=== PATIENT | male | born 1950 | race Caucasian/White ===

== ENCOUNTER → 2019-02-02 | Outpatient (CLI) | payer OTHER ==
[2015-07-07 07:03] VITALS: BP 129/64
[~2019-02-02] MED LIST: ASPI325T8 PO; HYDR-2145 PO; LISI-334 PO; METO-239 PO; SIMV20TA3 PO; ZOLP5TAB5 PO
--- NOTE | 2019-02-02 16:10 | KCIC ---
Examination: 3 views of the bilateral knees HISTORY: History of chronic bilateral knee pain, osteoarthritis COMPARISON: None available FINDINGS: Mild joint space loss identified in the medial, lateral, patellofemoral compartments of the bilateral knees. There is no acute fracture or dislocation identified. Minimal bilateral knee joint effusion. IMPRESSION: Minimal tricompartmental degenerative changes bilateral knees. Electronically signed by: Gilson Pollock MD (02/02/2019 4:07 PM) [facility]-KCIC2
== END | disposition home or self-care (01) ==
LOC: KCIC 14:13
PROVIDERS: ATTEND Family Medicine
DX: M17.0 Bilateral primary osteoarthritis of knee (principal)
CPT/HCPCS: 73562

== ENCOUNTER 2020-02-20 12:39 | Emergency (ER) | payer OTHER, MEDICARE ==
[~2020-02-20] VITALS: Ht 167.6 cm; Wt 80.9 kg
[~2020-02-20 12:39] MED LIST changes: +SIMV20TA18 PO; -SIMV20TA3 PO
[2020-02-20] MEDS ORDERED: DIPH,PERTUSS(ACELL),TET VAC/PF 0.5 ML SYRINGE. VAX IM ONE (13:00)
[2020-02-20] MEDS ORDERED: IV NORMAL SALINE 1000ML BAG 1,000 ML IV ONE (13:00)
[2020-02-20 13:21] LABS: BASO # 0.2 x10^3/uL (0.0-0.2); BASO % 1 % (0-3); EOS # 0.4 x10^3/uL (0.0-0.7); EOS % 3 % (0-3); HEMATOCRIT 44.5 % (39.0-53.0); HEMOGLOBIN 14.9 g/dL (13.0-17.5); LYMPH # 4.4 x10^3/uL (1.0-4.8); LYMPH % 32 % (24-48); MEAN CORPUSCULAR HEMOGLOBIN 30 pg (25-35); MEAN CORPUSCULAR HGB CONC 33 g/dL (31-37); MEAN CORPUSCULAR VOLUME 88 fL (79-100); MONO # 1.1 x10^3/uL (0.0-1.1); MONO % 9 % (0-9); NEUT # 7.4 x10^3/uL (1.8-7.7); NEUT % 55 % (31-73); PLATELET COUNT 349 x10^3/uL (140-400); RED BLOOD COUNT 5.03 x10^6/uL (4.30-5.70); RED CELL DISTRIBUTION WIDTH 13.1 % (11.5-14.5); WHITE BLOOD COUNT 13.5 x10^3/uL (4.0-11.0)
[2020-02-20 13:31] LABS: CALCIUM 9.5 mg/dL (8.5-10.1); CREATININE 1.6 mg/dL (0.7-1.3); GFR 43.3; POTASSIUM 3.8 mmol/L (3.5-5.1)
[2020-02-20 13:32] LABS: PROTHROMBIN TIME PATIENT 13.2 SEC (11.7-14.0)
[2020-02-20 13:44] LABS: ALBUMIN 3.2 g/dL (3.4-5.0); ALBUMIN/GLOBULIN RATIO 0.9 (1.0-1.7); TOTAL BILIRUBIN 0.4 mg/dL (0.2-1.0); TOTAL PROTEIN 6.7 g/dL (6.4-8.2)
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
[2020-02-20 14:09] VITALS: BP 140/71
--- NOTE | 2020-02-22 15:15 | EKG ---
[facility] [address] [place] [address] Test Date: 2020-02-20 Test Time: 12:44:00 Pat Name: JUN FOWLER Department: Room: Gender: M Chronometer Tester: : 1950 Requested By: SEBAS HI Order Number: [id number] Reading MD: Measurements Intervals [place] Rate: 59 P: 58 NE: 210 QRS: 13 QRSD: 98 T: 46 QT: 440 QTc: 436 Interpretive Statements SINUS RHYTHM INCOMPLETE RIGHT BUNDLE BRANCH BLOCK NO SPECIFIC ECG ABNORMALITIES RI6.01 No previous ECG available for comparison
== END 2020-02-20 14:15 | disposition home or self-care (01) ==
LOC: ER 12:39
DX: S80.212A Abrasion, left knee, initial encounter (principal); S80.211A Abrasion, right knee, initial encounter; S50.811A Abrasion of right forearm, initial encounter; R55 Syncope and collapse; E11.9 Type 2 diabetes mellitus without complications; E78.00 Pure hypercholesterolemia, unspecified; I10 Essential (primary) hypertension; Z87.891 Personal history of nicotine dependence; V19.88XA Pedal cyclist (driver) (passenger) injured in other specified transport accidents, initial encounter; Y92.488 Other paved roadways as the place of occurrence of the external cause; Y93.89 Activity, other specified; Y99.8 Other external cause status
CPT/HCPCS: 36415; 80053; 83735; 83880; 84484; 85025; 85610; 85730; 90471; 90715; 93005; 96360; 99284; J7030

== ENCOUNTER → 2020-08-08 | Outpatient (CLI) | payer OTHER ==
[~2020-08-08] MED LIST changes: +AMLO-187 PO; +ASPI-630 PO; +ATOR40TA59 PO; +BUPR100T11 PO; +CLOP75TA PO; -LISI-334 PO; +LISI20TA18 PO; +LORA5TAB7 PO; +METF500T16 PO; +METO25TA4 PO; +OMEP20TA63 PO; +REGADENOSON 0.4 MG/5 ML DISP.SYRIN. IV ONE
--- NOTE | 2020-08-08 11:14 | RAD ---
EXAM: Bilateral lower extremity arterial Doppler sonogram. HISTORY: Claudication. Leg pain. Peripheral artery disease. TECHNIQUE: Fierro scale and color Doppler sonographic imaging of the lower extremity arteries with spec tral waveform analysis was performed. COMPARISON: None. FINDINGS: There is severe atherosclerotic plaque throughout the right greater than left common femora l and superficial femoral arteries. There are abnormal monophasic waveforms throughout the right supe rficial femoral, popliteal and calf arteries. There are also decreased peak systolic velocities withi n these vessels, predominantly at the right mid superficial femoral artery. There are biphasic and triphasic waveforms throughout the left lower extremity arteries. There is an elevated peak systolic velocity within the distal left superficial femoral artery measuring 290 cm/s. IMPRESSION: 1. Severe atherosclerotic plaque involving the right greater than left common femoral and superficial femoral arteries. 2. Abnormal monophasic waveforms involving the right superficial femoral, popliteal and calf arteries , consistent with hemodynamically significant proximal stenosis. This predominantly involves the mid superficial femoral artery. 3. Elevated peak systolic velocity within the distal left superficial femoral artery, consistent with hemodynamically significant stenosis. Electronically signed by: Barbara Hair MD (08/08/2020 11:12 AM) [id number]
--- NOTE | 2020-08-08 14:32 | RAD ---
MR#: [id number] Date of Study: 08/08/2020 Ordering Physician: JADE FINCH Referring Physician: KADEN ZAPATA Tech: RT Flora Sosa) (N) APPROVED REPORT Test Type: Pharmacological Stress Nurse/Tech: Lula Flores RN Test Indications: dyspnea on exertion Cardiac History: HTN, x-smoker, DM Medications: See Electronic Medical Record Medical History: See Electronic Medical Record Resting ECG: SR Resting Heart Rate: 59 bpm Resting Blood Pressure: 146/79mmHg Pretest Chest Pain: None Nurse/Tech Notes lungs CTA Consent: The procedure was explained to the patient in lay terms. Informed consent was witnessed. Rajat eout was entered into [employer]. History and Stress Test performed by RT Ian (Afshin) (N) Pharm. Details Pharmacologic stress testing was performed using 0.4mg per 5ml of regadenoson given intravenously ove r 7-10 seconds. Stress Symptoms No chest pain or symptoms. POST EXERCISE Reason for Termination: Infusion complete Max HR: 79 bpm Max Blood Pressure: 146/55mmHg Blood Pressure response to exercise: Normal blood pressure response during stress. Heart Rate response to exercise: normal response Chest Pain: No. Arrhythmia: No. ST Change: No. INTERPRETATION Stress EKG Conclusion: Baseline EKG showed sinus rhythm. No ischemic changes at peak stress. No arr hythmias. Imaging Protocol IMAGE PROTOCOL: Rest Tc-99m/stress Tc-99m 1 day Rest: Stress: Viability: Radiopharm.Tc99m LpnxaisnwOb25d Sestamibi Dose10.5mCi 30.1mCi Duration 15min. 10min. Img Date 08/08/2020 08/08/2020 Inj-Img [id number]. 60min. Rest Admin Site:IV - Left AntecubitalAdministrator:RT Ian (Afshin)(N) Stress Admin Site: IV - Left AntecubitalAdministrator: RT Ian (Afshin)(N) STRESS DATA End Diast. Vol.79.0mlAv. Heart Rate61.0bpm End Syst. Vol.17.0mlCO Index BSA0.0L/min Myocardial Htaj412.0gEject. Jarvpdhr72.0% Stress Rates Pk. Fill Rate2.90EDV/secLVtime Pk. Fill 218.54msec Pk. Empty Rate4.51ESV/secLVtime Pk. Ccizg782.15msec 1/3 Pk. Fill1.20EDV/sec Stress Scores Regional WT0.00Summed WT8.00 Regional WM0.00Summed WM0.00 Study quality was good. Left Ventricular size was Normal at Rest and Stress. Lung uptake was . Left Ventricular ejection fraction is 75%. The rest and stress images show normal perfusion, normal contraction and thickening. LV Perf. Quant 17 Seg. SSS0.00 17 Seg. SRS0.00 17 Seg. SDS0.00 Stress Defect Extent (% LAD)0.00Rest Defect Extent (% LAD)0.00Rev. Defect Extent (% LAD)0.00 Stress Defect Extent (% LCX) 0.00Rest Defect Extent (% LCX)0.00Rev. Defect Extent (% LCX)0.00 Stress Defect Extent (% RCA)0.00Rest Defect Extent (% RCA)0.00Rev. Defect Extent (% RCA)0.00 Stress Defect Extent (% BOO)0.00Rest Defect Extent (% BOO)0.00Rev. Defect Extent (% BOO)0.00 Conclusion 1. Regadenoson cardioisotope stress test did not show any evidence of ischemia or infarct. 2. Normal left ventricular systolic function with ejection fraction calculated at 75%. 3. Low risk for cardiac events. Signed by : Jade Finch, Electronically Approved : 08/08/2020 14:31:55
--- NOTE | 2020-08-08 15:04 | CARD ---
MR#: [id number] Date of Study: 08/08/2020 Ordering Physician: JADE FINCH, Referring Physician: JADE FINCH, Tech: Carlie Blankenship [facility] APPROVED REPORT EXAM: Two-dimensional and M-mode echocardiogram with Doppler and color Doppler. Other Information Quality : FairHR: 61bpm Rhythm : NSR INDICATION Dyspnea RISK FACTORS Hypertension Hyperlipidemia 2D DIMENSIONS RVDd3.6 (2.9-3.5cm)Left Atrium(2D)3.7 (1.6-4.0cm) IVSd0.9 (0.7-1.1cm)Aortic Root(2D)3.6 (2.0-3.7cm) LVDd4.4 (3.9-5.9cm)LVOT Diameter2.1 (1.8-2.4cm) PWd1.1 (0.7-1.1cm)LVDs2.6 (2.5-4.0cm) FS (%) 40.6 %SV62.1 ml LVEF(%)71.6 (>50%) Aortic Valve AoV Peak Jeronimo.163.3cm/sAoV VTI35.1cm AO Peak GR.10.7mmHgLVOT Peak Jeronimo.117.7cm/s AO Mean GR.4mmHgAVA (VMAX)2.51cm2 Mitral Valve MV E Vdjxsskm64.2cm/sMV DECEL EITE283ky MV A Qatzmamc50.0cm/sE/A Ratio1.0 Tricuspid Valve TR P. Gzmakupx653qp/sTR Peak Gr.20mmHg Pulmonary Vein S1 Vzkhvaiy63.4cm/s LEFT VENTRICLE The left ventricle is normal size. There is normal left ventricular wall thickness. The left ventricu lar systolic function is normal. Estimated ejection fraction 55-60%. There is normal LV segmental wal l motion. The left ventricular diastolic function and filling is normal for age. RIGHT VENTRICLE The right ventricle is normal size. There is normal right ventricular wall thickness. The right ventr icular systolic function is normal. ATRIA The left atrium size is normal. The right atrium size is normal. The interatrial septum is intact wit h no evidence for an atrial septal defect or patent foramen ovale as noted on 2-D or Doppler imaging. AORTIC VALVE The aortic valve is normal in structure and function. Doppler and Color Flow revealed no significant aortic regurgitation. There is no significant aortic valvular stenosis. MITRAL VALVE The mitral valve is normal in structure and function. There is no evidence of mitral valve prolapse. There is no mitral valve stenosis. Doppler and Color Flow revealed no mitral valve regurgitation note d. TRICUSPID VALVE The tricuspid valve is normal in structure and function. Doppler and Color Flow revealed trace tricus pid regurgitation. Estimated PAP 23 mmHg. There is no tricuspid valve stenosis. PULMONIC VALVE The pulmonary valve is normal in structure and function. Doppler and Color Flow revealed no pulmonic valvular regurgitation. GREAT VESSELS The aortic root is normal in size. The ascending aorta is normal in size. The pulmonary artery is nor mal. The IVC is normal in size and collapses >50% with inspiration. PERICARDIAL EFFUSION There is no evidence of significant pericardial effusion. Critical Notification Critical Value: No <Conclusion> The left ventricular systolic function is normal. Estimated ejection fraction 55-60%. There is normal LV segmental wall motion. Trace tricuspid regurgitation. Estimated PAP 23 mmHg. There is no evidence of significant pericardial effusion. Signed by : Jade Finch, Electronically Approved : 08/08/2020 15:03:48
== END ==
LOC: ECHO 08:39
PROVIDERS: ATTEND Internal Medicine Cardiovascular Disease
DX: I70.203 Unspecified atherosclerosis of native arteries of extremities, bilateral legs (principal); I10 Essential (primary) hypertension; R06.09 Other forms of dyspnea; Z87.891 Personal history of nicotine dependence
CPT/HCPCS: 78452; 93017; 93306; 93925; A9500; J2785

== ENCOUNTER → 2020-08-23 | Outpatient (CLI) | payer OTHER, MEDICARE ==
[~2020-08-23] MED LIST changes: -REGADENOSON 0.4 MG/5 ML DISP.SYRIN. IV ONE
== END ==
LOC: LAB 09:22
PROVIDERS: ATTEND Internal Medicine Cardiovascular Disease
DX: Z01.812 Encounter for preprocedural laboratory examination (principal); Z20.822 Contact with and (suspected) exposure to COVID-19
CPT/HCPCS: U0003

== ENCOUNTER 2020-08-26 06:59 | Outpatient (CLI) | payer OTHER ==
[~2020-08-26] VITALS: Ht 170.2 cm; Wt 86.2 kg
[2020-08-26] VITALS (13 sets, daily range): BP systolic 114–147; BP diastolic 73–82
[~2020-08-26 06:59] MED LIST changes: -AMLO-187 PO; -ASPI-630 PO; -ATOR40TA59 PO; -BUPR100T11 PO; -CLOP75TA PO; -LORA5TAB7 PO; -METF500T16 PO; -OMEP20TA63 PO
[2020-08-26] MEDS ORDERED: ATOR40TA59 PO (07:30)
[2020-08-26] MEDS ORDERED: AMLO-187 PO (07:30)
[2020-08-26] MEDS ORDERED: OMEP20TA63 PO (07:30)
[2020-08-26] MEDS ORDERED: ASPI-630 PO (07:30)
[2020-08-26] MEDS ORDERED: BUPR100T11 PO (07:30)
[2020-08-26] MEDS ORDERED: METF500T16 PO (07:30)
[2020-08-26] MEDS ORDERED: LORA5TAB7 PO (07:30)
[2020-08-26] MEDS ORDERED: LIDOCAINE 1% Multi-Dose 20 ML VIAL. ONE ×2 (07:38→09:06)
[2020-08-26] MEDS ORDERED: IODIXANOL 320 MG/ML 100 ML VIAL. ONE (07:38)
[2020-08-26 07:41] LABS: HEMATOCRIT 42.7 % (39.0-53.0); HEMOGLOBIN 14.3 g/dL (13.0-17.5); RED BLOOD COUNT 4.87 x10^6/uL (4.30-5.70); RED CELL DISTRIBUTION WIDTH 13.5 % (11.5-14.5); WHITE BLOOD COUNT 12.8 x10^3/uL (4.0-11.0)
[2020-08-26] MEDS ORDERED: MIDAZOLAM HCL/PF 5 MG/5 ML VIAL. ONE (08:19)
[2020-08-26] MEDS ORDERED: fentaNYL PF VIAL 100 MCG/2 ML VIAL ONE ×2 (08:19→09:40)
[2020-08-26] MEDS ORDERED: HEPARIN for IV BOLUS 10,000 UNIT/10 ML VIAL. ONE ×2 (08:19→09:20)
[2020-08-26 08:29] LABS: PROTHROMBIN TIME PATIENT 12.7 SEC (11.7-14.0)
[2020-08-26 08:35] LABS: CALCIUM 9.6 mg/dL (8.5-10.1); CREATININE 1.1 mg/dL (0.7-1.3); GFR 66.6; POTASSIUM 3.8 mmol/L (3.5-5.1)
--- NOTE | 2020-08-26 08:39 | PDOC ---
MODERATE SEDATION ASSESSMENT RISKS/ALTERNATIVES Risks/Alternatives Risks and alternatives of this type of sedation and procedure discussed with: RISK/ALTERNATIVES: Patient H & P ON CHART H & P H & P on chart and reviewed for co-morbid conditions and appropriate labs. H&P ON CHART: Yes STATUS PREG STATUS ASSESSED: N/A MEDS/ALLERGIES REVIEWED Meds/Allergies Reviewed Medications and Allergies including time and route of recently administered narcotics and sedatives. MEDS/ALLERGIES REVIEWED: Yes ASA RATING ASA RATING: II AIRWAY ASSESSMENT Airway Assessment Airway patency, oral function limitations, presence of caps, crowns, dentures, partials, and ability to extend neck assessed. AIRWAY ASSESSMENT: Yes MALLAMPATI SCORE MALLAMPATI SCORE: II PRE-SEDATION ASSESSMENT PRE-SEDATION ASSESSMENT: Yes JADE FINCH MD Aug 26, 2020 08:39
[2020-08-26] MEDS ORDERED: NITROGLYCERIN 200 MCG/2 ML SYRINGE FOR CATH/VASC LAB. ONE (09:12)
[2020-08-26] MEDS ORDERED: VERAPAMIL 5 MG/2 ML VIAL. ONE (09:12)
[2020-08-26] MEDS ORDERED: HEPARIN for IV BOLUS 10,000 UNIT/10 ML VIAL. IV ONE (09:15)
[2020-08-26] MEDS ORDERED: CONTRAST GIVEN. MC PRN (09:15)
[2020-08-26] MEDS ORDERED: MIDAZOLAM HCL/PF 5 MG/5 ML VIAL. IV ONE (09:15)
[2020-08-26] MEDS ORDERED: fentaNYL PF VIAL 100 MCG/2 ML VIAL IV ONE (09:15)
[2020-08-26] MEDS ORDERED: NITROGLYCERIN 200 MCG/2 ML SYRINGE FOR CATH/VASC LAB. IART ONE (09:15)
[2020-08-26] MEDS ORDERED: LIDOCAINE 1% Multi-Dose 20 ML VIAL. INJ ONE (09:15)
[2020-08-26] MEDS ORDERED: VERAPAMIL 5 MG/2 ML VIAL. IART ONE (09:15)
[2020-08-26] MEDS ORDERED: IODIXANOL 320 MG/ML 100 ML VIAL. IART ONE (09:15)
[2020-08-26] MEDS ORDERED: dilTIAZem IV PUSH 25 MG/5 ML VIAL ONE (09:20)
[2020-08-26] MEDS ORDERED: NITROGLYCERIN 4 MG/20 ML SYRINGE for CATH LAB. ONE ×2 (09:20→09:30)
[2020-08-26] MEDS ORDERED: CLOP75TA PO (10:07)
[2020-08-26] MEDS ORDERED: CLOPIDOGREL BISULFATE 75 MG TABLET PO ONE (10:15)
[2020-08-26] MEDS ORDERED: IV 1/2 NORMAL SALINE 1,000 ML IV SCH (10:30)
[2020-08-26] MEDS ORDERED: ACETAMINOPHEN 325 MG TABLET. PO PRN (10:30)
--- NOTE | 2020-08-26 10:53 | CARD ---
MR#: [id number] Date of Study: 08/26/2020 Ordering Physician: JADE FINCH, Referring Physician: JADE FINCH, Tech: AMITA DASILVA APPROVED REPORT Patient StatusOUT-PATIENT Nocturnist: AMITA DASILVA Procedure(s) performed: 1. Aortogram with bilateral lower extremity runoff 2. Successful orbital atherectomy/ENERGY CONSERVATION DIRECTOR/stent placement to chronic total occlusion involving the right superficial femoral artery via right posterior tibial/pedal access. MODERATE SEDATION TIME: 117 minutes FLUORO TIME: 22.3 MIN DOSE: 59.4 GYCM2 CONTRAST: 119CC VISI INDICATION FOR PROCEDURE The indication(s) include : Peripheral artery disease with claudication. CASE TECHNIQUE After explaining the risks, benefits, and alternative options, informed consent was obtained from the patient. IV conscious sedation was used throughout procedure with appropriate monitoring and was per formed in the presence of a registered nurse who was an independent trained observer other than the paula mendoza performing the procedure. During this case, Fluoroscopy and Iso-osmolar contrast were used f or imaging. Specimen(s) Removed: No Estimated Blood loss: 10 cc's. During the procedure Heparin was u sed for anticoagulation. PROCEDURE NARRATIVE Patient was brought to the cardiac Corporate Sales Representative and his right groin was prepped and draped in the usual f ashion. 20 cc of 2% lidocaine was infiltrated into the skin and subcutaneous tissues for local anest hesia. Arterial access was obtained in the right common femoral artery and a 5 Nauruan sheath was ins erted. 5 Nauruan pigtail catheter was used to perform aortoiliac angiography. Contrast injections we re performed through the sheath in the right groin for selective right lower extremity angiography. The aortic kareem was crossed using a 5 Nauruan crossover catheter which was then exchanged to a 4 Luc ohh angled glide catheter and with the tip position in the left external iliac artery followed by lef t superficial femoral artery, selective left lower extremity angiography was performed. The followin g findings were noted: FINDINGS 1. No significant stenosis involving the distal descending aorta. 2. No significant stenosis involving bilateral common and external iliac arteries. 3. No significant stenosis involving bilateral common femoral arteries. 4. The right superficial femoral artery showed a long calcified chronic total occlusion involving th e mid and mid to distal segments. The left superficial femoral artery showed 30 to 40% calcified evan nosis in the midsegment. 5. Popliteal arteries bilaterally did not show any significant stenosis. There appeared to be three -vessel runoff below the knee bilaterally. 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 His right foot was then prepped and draped in the usual fa shion. After administering local anesthetic, the posterior tibial artery was accessed using vascular ultrasound guidance and a 6 Nauruan glide sheath was inserted. A 0.014 inch command ES guidewire was then advanced under fluoroscopic guidance and with backup support from a [address], chronic total occlusion was successfully crossed. The wire was then exchanged over a quick cros s microcatheter to a ProBinder guidewire. Multiple orbital atherectomy passes were then performed within the lesion using a 2.0 CSI diamondback orbital atherectomy catheter. This lesion was then dilated w ith a 5.0 x 150 mm Carson Carnation balloon. Since follow-up angiography showed an area of dissection i n the mid segment, we decided to treat this with stent placement. The vessel was then prepped by dil ating with 5.5 x 100 mm Carson Carnation balloon. This was successfully treated with a 5.5 x 100 mm Abb valerie superior self-expanding stent. Follow-up angiography showed resolution of the lesion 0% with goo d distal flow. Patient tolerated the procedure well. Hemostasis in the right posterior tibial arter y was achieved using TR band and right groin using Angio-Seal. There were no immediate complications . Conclusion Successful orbital atherectomy/ENERGY CONSERVATION DIRECTOR/stent placement to long chronic total occlusion involving the righ t superficial femoral artery via right posterior tibial/pedal access. Recommendations 1. Aspirin 81 mg daily 2. Plavix 75 mg daily for 4 to 6 weeks 3. Vascular risk factor modification and regular exercise regimen Signed by : Jade Finch, Electronically Approved : 08/26/2020 10:52:31
--- NOTE | 2020-08-26 13:52 | NUR ---
Plavix 75mg daily called in to [facility] in [employer] per patient request. Addendum: 08/26/20 at 1353 by ENRIQUE DONG RN [facility]
--- NOTE | 2020-08-26 14:29 | NUR ---
TR band removed at 1405, dressing applied. Patient able to walk to bathroom, dress himself without any bleeding at groin site or foot. Instructions provided on site care, PVD, sedation. Instructed patient to monitor for bleeding, to keep foot elevated on multiple pillows for next two-three days (per MD order). Patient and verbalized understanding. No further questions at this time. Patient taken to vehicle via wheelchair at 1425. driving. All belongings taken with patient at time of discharge.
== END 2020-08-26 14:30 | disposition home or self-care (01) ==
LOC: CCL 06:59
PROVIDERS: ATTEND Internal Medicine Cardiovascular Disease
DX: I73.9 Peripheral vascular disease, unspecified (principal); E78.00 Pure hypercholesterolemia, unspecified; I10 Essential (primary) hypertension; K21.9 Gastro-esophageal reflux disease without esophagitis; E11.9 Type 2 diabetes mellitus without complications; M19.90 Unspecified osteoarthritis, unspecified site; Z87.891 Personal history of nicotine dependence; Z79.82 Long term (current) use of aspirin; Z79.4 Long term (current) use of insulin; Z79.899 Other long term (current) drug therapy; Z98.890 Other specified postprocedural states
CPT/HCPCS: 36415; 37227; 75625; 75716; 76937; 80048; 85027; 85610; 99152; 99153; C1724; C1725; C1760; C1769; C1876; C1892; C1894; J1644; J2250; J3010; J3490; J7030; Q9967; G0269; C1771

== ENCOUNTER → 2021-05-18 | Outpatient (CLI) | payer MEDICARE, OTHER ==
[2020-08-26 14:15] VITALS: BP 142/80
[~2021-05-18] MED LIST changes: +AMLO-187 PO; +ASPI-630 PO; +ATOR40TA59 PO; +BUPR100T11 PO; +CLOP75TA PO; +LORA5TAB7 PO; +METF500T16 PO; +OMEP20TA63 PO
--- NOTE | 2021-05-18 11:19 | KCIC ---
EXAM: Cervical spine, 3 views. HISTORY: Paresthesia. COMPARISON: None. FINDINGS: 5 views of the cervical spine are obtained. There is mild reversal cervical lordosis. There is multilevel endplate remodeling and anterior spurring. There is multilevel facet arthropathy. Ther e is lateral foraminal stenosis at multiple levels. IMPRESSION: 1. Multilevel degenerative change, described above. 2. No acute osseous finding. Electronically signed by: Barbara Hair MD (05/18/2021 11:16 AM) [id number]
== END ==
LOC: KCIC 10:41
PROVIDERS: ATTEND Physician Assistant
DX: M47.812 Spondylosis without myelopathy or radiculopathy, cervical region (principal); M48.02 Spinal stenosis, cervical region; R20.2 Paresthesia of skin; M40.292 Other kyphosis, cervical region
CPT/HCPCS: 72050

== ENCOUNTER → 2021-05-22 | Outpatient (CLI) | payer OTHER, MEDICARE ==
[2020-08-26 14:15] VITALS: BP 142/80
--- NOTE | 2021-05-22 11:11 | RAD ---
MR#: [id number] Date of Study: 05/22/2021 Ordering Physician: JADE DELACRUZ, Referring Physician: JADE DELACRUZ, Tech: Ed Wheeler MBA, RDMS, RVT, RDCS, RTR APPROVED REPORT Patient Location: OUT-PATIENT Indications PAD VELOCITY AND DOPPLER WAVEFORM ANALYSIS RIGHT cm/secWaveformSeverity LEFT cm/secWaveform Severity dCFA 147.0TriphasicdCFA 87.0Triphasic Prof Fem Art. 116.0BiphasicProf Fem Art. 62.0Triphasic Fem Art Prox. 78.0TriphasicFem Art Prox. 95.0Triphasic Fem Art Mid. 124.0MonophasicFem Art Mid. 118.0Triphasic Fem Art Dist. 451.0MonophasicFem Art Dist. 302.0Triphasic Pop Art(Fossa) 50.0MonophasicPop Art(AK) 80.0Triphasic CLIENT SERVICE REPRESENTATIVE Prox. 60.0MonophasicPTA Prox. 48.0Monophasic CLIENT SERVICE REPRESENTATIVE Dist. 58.0MonophasicPTA Dist. 53.0Monophasic Per Art Mid. 35.0MonophasicPer Art Mid. 80.0Monophasic PENELOPE Prox. 39.0MonophasicATA Prox. 64.0Triphasic DPA 37MonophasicDPA 52Triphasic Findings Grayscale images showed mild diffuse atherosclerosis. The stent in the mid segment appears to be pat ent but just distal to the stent there was moderate atherosclerotic plaque. The left SFA showed mode rate atherosclerotic plaquing in the distal segment. Spectral waveform and color duplex analysis was performed. There was increased velocities just distal to the stent with peak systolic velocity of 1 51 cm/s suggestive of greater than 70% stenosis. The distal segment of the left SFA also showed incr eased peak systolic velocity of 302 cm/s suggesting greater than 70% stenosis. Rest of the vessels d id not show any significant stenosis. There is three vessel runoff below the knee bilaterally with m onophasic waveforms right lower extremity probably secondary to significant inflow disease as describ ed above. Critical Notification Critical Value: Yes <Conclusion> Significant greater than 70% stenosis involving bilateral superficial femoral arteries in the distal segments. The previously placed stent in the mid segment of the right SFA was patent. Signed by : Jade Delacruz, Electronically Approved : 05/22/2021 11:10:38
== END ==
LOC: US 09:49
PROVIDERS: ATTEND Internal Medicine Cardiovascular Disease
DX: I70.203 Unspecified atherosclerosis of native arteries of extremities, bilateral legs (principal)
CPT/HCPCS: 93925

== ENCOUNTER → 2021-05-31 | Outpatient (CLI) | payer OTHER, MEDICARE ==
[2020-08-26 14:15] VITALS: BP 142/80
--- NOTE | 2021-05-31 13:44 | KCIC ---
MR CERVICAL SPINE WO DATE: 05/31/2021 11:00 AM INDICATION: PARESTHESIA OF LT UE, OSTEOARTHRITIS W/ RADICULOPATHY. Acute pain and numbness in left a rm, new onset. NKI. TECHNIQUE: Multiplanar multisequence magnetic resonance imaging of the cervical spine was performed w ithout administration of intravenous contrast using the standard cervical spine protocol. COMPARISON: None. FINDINGS: Straightening of the cervical lordosis. No acute fracture. Mild multilevel degenerative disc desicca tion and disc height loss. No marrow replacing process to suggest malignancy. The spinal cord is normal in signal intensity. On the limited views of the cranial cavity and brain, the cerebellum and patsy have normal morphology and signal characteristics. No Chiari malformation. No soft tissue abnormality. Normal signal voids are present in the vertebral arteries. C2-3: Moderate facet arthropathy. No significant spinal canal stenosis or neural foraminal narrowing. C3-4: Disc osteophyte complex. Uncovertebral hypertrophy. Mild left neural foraminal narrowing. Mild spinal canal stenosis. C4-5: Disc osteophyte complex. Uncovertebral hypertrophy. Mild left facet arthropathy. Mild right and moderate left neural foraminal narrowing. Moderate spinal canal stenosis. C5-6: Disc osteophyte complex. Uncovertebral hypertrophy. Mild left facet arthropathy. Moderate bilat eral neural foraminal narrowing. Mild spinal canal stenosis. C6-7: Disc osteophyte complex. Uncovertebral hypertrophy. Mild left neural foraminal narrowing. Mild spinal canal stenosis. C7-T1: Mild facet arthropathy. No significant spinal canal stenosis or neural foraminal narrowing. IMPRESSION: Moderate cervical spondylosis, worst at C4-5. Electronically signed by: Rc Jacobsen MD (05/31/2021 1:41 PM) [id number]
== END ==
LOC: KCIC MRI 10:34
PROVIDERS: ATTEND Physician Assistant
DX: M47.22 Other spondylosis with radiculopathy, cervical region (principal); M48.8X3 Other specified spondylopathies, cervicothoracic region; M48.02 Spinal stenosis, cervical region; G95.9 Disease of spinal cord, unspecified; M25.78 Osteophyte, vertebrae; R20.2 Paresthesia of skin
CPT/HCPCS: 72141

== ENCOUNTER → 2021-06-29 | Outpatient (CLI) | payer OTHER, MEDICARE ==
[2020-08-26 14:15] VITALS: BP 142/80
[~2021-06-29] MED LIST changes: +DICL20GE TP; +GABA300C18 PO; +LISI1TAB39 PO
--- NOTE | 2021-06-29 13:15 | PDOC1 ---
INITIAL PAIN CONSULT DATE OF SERVICE: DOS: DATE: 06/29/21 TIME: 13:05 CHIEF COMPLAINT: Chief Complaint: Neck and left upper extremity pain HISTORY OF PRESENT ILLNESS: 70-year-old male presents history of pain in the base the neck and left upper extremity for approximately 2 months nothing of any specific injury or accident that is where the pain just came up and was there 1 day has not been able to get rid of the patient is doing stretching strengthening exercises daily which helps slightly he is also had physical therapy through mid May which was not significantly helpful at least not long-term patient reports that he still doing the stretching strength exercises the pain is still significant in the left upper extremity and base of the neck and shoulder rating the anterior deltoid biceps forearm into the hand and especially into the left thumb patient reports is constant shooting tingling radiating disturbed sleep he is unable to sleep it wakes him up several times a night does not affect his bowel bladder control or ability to walk but repetitive motions reaching over his head with his left arm as well as reaching forward weightbearing repetitive motions and driving are exacerbating at the most patient reports his disability rating 0-10 10 being the worst is a 7 with family home responsibilities 9 with recreation 6 with social activity and occupational activity and life support activities 0 with sexual ac tivity and 7 with well with self-care activities, especially sleeping. Patient has been taking gabapentin as well as [id number] ibuprofen and Tylenol all of which helped slightly the gabapentin seems to help his thumb but the rest the pain is persistent. Patient did have a MRI scan cervical spine which we discussed with him today showing mild disc osteophyte complex at C4-5 and C5-6 with mild bilateral neuroforaminal narrowing C5-6 mild spinal canal stenosis C4- 5 shows mild right and moderate left neuroforaminal narrowing and moderate spinal canal stenosis. PAST MEDICAL HISTORY: PMH: Hypertension, type 2 diabetes, hearing loss PREVIOUS SURGERIES: Past Surgical Hx: Oratory laparotomy, splenectomy, appendectomy, adhesiolysis, cataract extractions, endovascular stent right lower extremity CURRENT MEDICATIONS: Current Meds: Active Scripts Medications Dose Route/Sig Max Daily Dose Days Date Category Voltaren Arthritis Pain (Diclofenac Sodium) 20 Gm Gel..gram. 20 Gm TP PRN BID PRN 06/29/21 Reported Gabapentin 300 Mg Capsule 600 Mg PO QHS 06/29/21 Reported Gabapentin (Gabapentin) 300 Mg Capsule 300 Mg PO DAILY 06/29/21 Reported Lisinopril-Hctz 20-25 Mg Tab (Lisinopril/Hydrochlorothiazide) 1 Each Tablet 1 Tab PO DAILY 06/29/21 Reported Bupropion Hcl 100 Mg Tablet 150 Mg PO DAILY 08/26/20 Reported Amlodipine Besylate 10 Mg Tablet 10 Mg PO DAILY 08/26/20 Reported Atorvastatin Calcium 40 Mg Tablet 1 Tab PO DAILY 08/26/20 Reported Claritin (Loratadine) 5 Mg Tab.rapdis 1 Tab PO DAILY 30 08/26/20 Reported Aspirin 81 Mg Tab.chew 1 Tab PO DAILY 08/26/20 Reported Prilosec Otc (Omeprazole Magnesium) 20 Mg Tablet.dr 1 Tab PO DAILY 30 08/26/20 Reported Metformin Hcl 500 Mg Tablet 500 Mg PO BID 08/26/20 Reported ALLERGIES; Allergies: Coded Allergies: prasugrel (Verified Adverse Reaction, Intermediate, Rash, 06/29/21) FAMILY HISTORY: Family Hx: Hypertension SOCIAL HISTORY: Social Hx: Patient does not drink alcohol does not smoke does not use any illegal, illicit or recreational drugs is lives with his spouse lives locally [place], [place] REVIEW OF SYSTEMS: ROS: Positive for those items mentioned in history of present illness, all systems are reviewed, otherwise negative ,and are complete full and well-documented on patient's chart. PHYSICAL EXAM: VS: Blood pressure is 144/86 pulse 68 respirations 18 temperature 97.5 F height 5 feet 6 inches weight is 193 pounds PE: PHYSICAL EXAMINATION: GENERAL: The patient is awake, alert, oriented, appropriate, very pleasant in demeanor HEENT: Shows normocephalic, atraumatic. Extraocular movements are intact and symmetrical. Oral cavity: Mucous membranes moist and pink. Dentition is inta ct. NECK: Shows anterior throat supple without palpable lymphadenopathy noted. Swallow reflex symmetrical. CHEST: Shows normal on inspection. Breath sounds are clear bilaterally, distant no rales or rhonchi. HEART: Shows S1, S2 clear. No murmurs auscultated. ABDOMEN: Soft, nontender, nondistended, obese. No palpable organomegaly is noted. BACK: Shows spine grossly in the midline. Normal-appearing cervical lordotic curvature. Cervical paraspinous muscles show symmetrical inspection on the patient is moderate tenderness diffusely in inferior aspect the cervical paraspinous muscles on the left but not the right also into the superior medial trapezius on the left but without radiation without trigger points. Patient shows full rotation motion cervical spine including extension and flexion without significant difficulty. There is slightly increased thoracic kyphosis, some minor flattening of the lumbar lordotic curvature. EXTREMITIES: Upper extremities show deep tendon reflexes 2+ in the patellar and tendo calcaneus tendons. Motor exam is 5 on a scale of 5 with right dorsiflexion, extension, quadriceps and hamstring flexion and 4/5 on the left. Peripheral pulses are 2+ posterior tibial. No peripheral edema is noted bilaterally. Upper extremities are warm and dry to touch, equal in color and appearance. Shoulder shrug strong and intact without loss of strength on resistance. SKIN: Shows warm and dry, good turgor. No edema. No sores, rashes or bruising throughout. IMPRESSION: Impression: 70-year-old male with approximate 2-month history increasing pain neck base of the shoulder left upper extremity in a radicular fashion following a CT 5 6 dermatomal distribution MRI scan cervical spine as noted Hypertension Type 2 diabetes Hearing loss Plan: Options were discussed the patient including conservative medical management continued physical therapies and interventional techniques. Patient elects interventional techniques. We discussed a cervical epidural steroid injection using descriptions as well as anatomical models to describe the procedure. Patient wait for preauthorization with his insurance provider, once obtained we will have him return for cervical epidural steroid traction translaminar approach at the C5-6 level using fluoroscopic guidance. In the meantime, patient will continue with stretching strength exercises from physical therapy as well as oral analgesics and anti-inflammatories as currently. FIDE CAMPBELL MD Jun 29, 2021 13:15
== END | disposition home or self-care (01) ==
LOC: PNCL 10:21
PROVIDERS: ATTEND Anesthesiology
DX: M54.2 Cervicalgia (principal); M79.602 Pain in left arm; I10 Essential (primary) hypertension; E11.9 Type 2 diabetes mellitus without complications; E78.00 Pure hypercholesterolemia, unspecified; K21.9 Gastro-esophageal reflux disease without esophagitis; M19.90 Unspecified osteoarthritis, unspecified site; Z87.891 Personal history of nicotine dependence; Z79.82 Long term (current) use of aspirin; Z79.84 Long term (current) use of oral hypoglycemic drugs; Z79.899 Other long term (current) drug therapy; Z98.890 Other specified postprocedural states; Z88.8 Allergy status to other drugs, medicaments and biological substances
CPT/HCPCS: 99214; G0463

== ENCOUNTER → 2021-07-13 | Outpatient (CLI) | payer OTHER, MEDICARE ==
[2020-08-26 14:15] VITALS: BP 142/80
[~2021-07-13] MED LIST changes: +IOHEXOL 180 MG/ML 10 ML VIAL. ONE; +methylPREDNISolone ACETATE 40 MG/ML VIAL. ONE; +methylPREDNISolone ACETATE 80 MG/ML VIAL. ONE
--- NOTE | 2021-07-13 10:34 | PDOC ---
Progress Note - Pain Clinic Date of Service: DOS: DATE: 07/13/21 TIME: 10:29 Diagnosis: Dx: Cervical radiculopathy with cervical degenerative disease and cervical spondylosis History or Present Illness: HPI: 62-year-old male returns with pain base the neck and the left upper extremity patient reports the pain is increasing in the base the neck and shoulder left upper extremity rating the anterior bicep tricep also in the forearm and hand patient reports that it is getting much worse over the past week or so without any specific new injury or accident patient rates as a nine on scale ten is worst six on average three to [place] is a six today patient what is aching and shooting tingling burning radiating constant on and off intensity and patient reports now he is having difficulty with dropping things over the past week which is new for him as well as some fine motor movement difficulties with using buttons on his shirt or other fine motor activities with the fingers on the left hand. Patient reports no motor deficits but significant fatigability the left arm and dropping items once again. Physical Exam: VS: Blood pressure is 137/94 pulse eighty-one respirations eighteen temperature 97.8 F height 5 feet 6 inches weight is 187 pounds PE: PHYSICAL EXAMINATION: GENERAL: The patient is awake, alert, oriented, appropriate, very pleasant in demeanor HEENT: Shows normocephalic, atraumatic. Extraocular movements are intact and symmetrical. Oral cavity: Mucous membranes moist and pink. Dentition is intact. NECK: Shows anterior throat supple without palpable lymphadenopathy noted. Swallow reflex symmetrical. CHEST: Shows normal on inspection. Breath sounds are clear bilaterally, no rales or rhonchi. HEART: Shows S1, S2 clear. No murmurs auscultated. ABDOMEN: Soft, nontender, nondistended, obese. No palpable organomegaly is noted. BACK: Shows spine grossly in the midline. Normal-appearing cervical lordotic curvature. Cervical paraspinous muscles show symmetrical inspection, palpation some moderate tenderness diffusely bilaterally diffusely without radiation, trigger points asymmetry or atrophy, patient shows full rotation of motion cervical spine both laterally as well as extension flexion with some minor guarding with left lateral rotation performed fully. There is slightly increased thoracic kyphosis, some minor flattening of the lumbar lordotic curvature. EXTREMITIES: Upper extremities show deep tendon reflexes 2+ in the biceps and triceps tendons. Motor exam is five on a scale of 5 with right clinical courier, biceps and triceps flexion and four/5 on the left. Peripheral pulses are 2+ radial. No peripheral edema is noted bilaterally. Shoulder shrug is strong and intact bilaterally without loss of strength on resistance. Upper extremities are warm and dry to touch, equal in color and appearance. SKIN: Shows warm and dry, good turgor. No edema. No sores, rashes or bruising throughout. Procedure: Procedure: Options were discussed with the patient. Patient chart reviews his current medication regimen updated current review of systems updated today as well. We will proceed with a cervical epidural steroid injection today with fluoroscopic guidance. Risks were discussed including but not limited to: Bleeding, infection, possibility of epidural hematoma and subsequent neurological compromise, dural puncture, headaches, spinal cord and/or nerve damage, side effects of steroid medication, and poor results regarding pain control. Patient understands and wished to proceed. Patient will return to clinic in approximately 1week for follow-up, was counseled as to return appointment, activity level, and side effect to be aware of. Medication Injected: Med Injected: Procedure cervical epidural steroid injection at the C6-7 level, using local anesthetic under sterile prep and drape using C-arm fluoroscopic guidance under local anesthesia medications injected ;120 mg Depo-Medrol +5 mL normal saline and 2 mL contrast; condition at discharge is stable patient tolerated procedure well. and had no complications Condition at Discharge: Condition at Discharge: Condition at discharge stable, patient tolerated the procedure well and had no complications. FIDE CAMPBELL MD Jul 13, 2021 10:34
--- NOTE | 2021-07-13 10:34 | PDOC4 ---
Procedure Note: ICD 10 Code: ICD 10 Code: M54.12 M50.30 M4 7.812 Procedure Note: Patient was consented for cervical epidural steroid injection with fluoroscopic guidance. Risks were discussed including but not limited to: Bleeding, infection, possibility of epidural hematoma and subsequent neurological compromise, dural puncture, headaches, spinal cord and/or nerve damage, side effects of steroid medication, and poor results regarding pain control. Patient understands and wished to proceed. Procedure cervical epidural steroid injection at the C6-7 level, using local anesthetic under sterile prep and drape using C-arm fluoroscopic guidance under local anesthesia medications injected ;120 mg Depo-Medrol +5 mL normal saline and 2 mL contrast; condition at discharge is stable patient tolerated procedure well. and had no complications FIDE CAMPBELL MD Jul 13, 2021 10:34
== END | disposition home or self-care (01) ==
LOC: PNCL 09:34
PROVIDERS: ATTEND Anesthesiology
DX: M50.10 Cervical disc disorder with radiculopathy, unspecified cervical region (principal); M47.22 Other spondylosis with radiculopathy, cervical region; I10 Essential (primary) hypertension; E78.00 Pure hypercholesterolemia, unspecified; K21.9 Gastro-esophageal reflux disease without esophagitis; M19.90 Unspecified osteoarthritis, unspecified site; E11.9 Type 2 diabetes mellitus without complications; Z87.891 Personal history of nicotine dependence; Z79.82 Long term (current) use of aspirin; Z79.84 Long term (current) use of oral hypoglycemic drugs; Z79.899 Other long term (current) drug therapy; Z98.890 Other specified postprocedural states; Z88.8 Allergy status to other drugs, medicaments and biological substances
CPT/HCPCS: 62321; J1030; J1040; Q9965

== ENCOUNTER → 2021-07-20 | Outpatient (CLI) | payer OTHER, MEDICARE ==
[2020-08-26 14:15] VITALS: BP 142/80
[~2021-07-20] MED LIST changes: -IOHEXOL 180 MG/ML 10 ML VIAL. ONE; -methylPREDNISolone ACETATE 40 MG/ML VIAL. ONE; -methylPREDNISolone ACETATE 80 MG/ML VIAL. ONE
--- NOTE | 2021-07-20 11:11 | PDOC ---
Progress Note - Pain Clinic Date of Service: DOS: DATE: 07/20/21 TIME: 11:06 Diagnosis: Dx: Cervical radiculopathy with cervical degenerative disease and cervical spondylosis Type 2 diabetes Hypertension History or Present Illness: HPI: 70-year-old male returns for follow-up status post cervical epidural steroid injection x1. Patient reports about 75% improvement in his neck and left upper extremity pain patient reports he is very pleased with his progress his thumb is feeling much better on the left hand and still has some pain radiating in the left biceps triceps also into the deltoid and the neck when he extends his neck or turns his neck far to the right side he gets radiating pain into the left side patient reports while it is better it is still significant radiating pain in the left arm and to the thumb patient reports is tingling still in the neck shooting in the arm radiating in the arm rated as a 7 on scale 10 is worse over the past week for an average 0 its least is a 4 today. Patient reports much better sleeping occasionally wakes him from sleep at night and wants 5 hours or so. Patient reports no loss of motor function is increase his activity is no longer having to hold his arm up over his head to relieve the pain is very pleased with this as well patient has been doing household activities try with greater ease driving with greater ease and again sleeping better as well. Patient reports no new deficits Physical Exam: VS: Blood pressure is 155/93 pulse 68 respirations are 18 temperature is 98.2 F weight is 1 9 2 pounds. PE: PHYSICAL EXAMINATION: GENERAL: The patient is awake, alert, oriented, appropriate, very pleasant demeanor HEENT: Shows normocephalic, atraumatic. Extraocular movements are intact and symmetrical. Oral cavity: Mucous membranes moist and pink. Dentition is intact. NECK: Shows anterior throat supple without palpable lymphadenopathy noted. Swallow reflex symmetrical. CHEST: Shows normal on inspection. Breath sounds are clear bilaterally. HEART: Shows S1, S2 clear. No murmurs auscultated. ABDOMEN: Soft, nontender, nondistended. No palpable organomegaly is noted. BACK: Shows spine grossly in the midline. Normal-appearing cervical lordotic curvature. Cervical paraspinous muscles show symmetrical with inspection, on palpation some moderate tenderness diffusely but only in the inferior aspect the cervical paraspinous musculature only on the left without significant trigger points asymmetry or atrophy. There is slightly increased thoracic kyphosis, some minor flattening of the lumbar lordotic curvature. EXTREMITIES: Upper extremities show deep tendon reflexes 2+ in the biceps and triceps tendons. Motor exam is 5 on a scale of 5 with right calender inspector strength, biceps and triceps flexion and 4/5 on the left. Peripheral pulses are 2+ radial. No peripheral edema is noted bilaterally. Upper extremities are warm and dry to touch, equal in color and appearance. Shoulder shrug strong intact without loss strength on resistance bilaterally. SKIN: Shows warm and dry, good turgor. No edema. No sores, rashes or bruising throughout. Procedure: Procedure: Options were discussed with patient. Patient's old chart was reviewed his current medication regimen updated current review of systems updated today as well. We will preauthorize patient for second cervical epidural steroid injections done very well with the first injection with pain returning in a C6-7 dermatomal distribution in the left arm. Patient will continue with stretching strengthening exercises as currently as well as oral analgesics as currently also patient is taking gabapentin now 3 times daily instead of once daily and 2 at night. Patient reports no sedation with this regimen and improved pain control for the most part. Once preauthorize, patient will return for translaminar approach C6-7 cervical epidural steroid injection with fluoroscopic guidance. Medication Injected: Med Injected: None Condition at Discharge: Condition at Discharge: Condition at discharge is stable. FIDE CAMPBELL MD Jul 20, 2021 11:11
== END | disposition home or self-care (01) ==
LOC: PNCL 10:07
PROVIDERS: ATTEND Anesthesiology
DX: M50.10 Cervical disc disorder with radiculopathy, unspecified cervical region (principal); M47.22 Other spondylosis with radiculopathy, cervical region; E11.9 Type 2 diabetes mellitus without complications; I10 Essential (primary) hypertension; E78.00 Pure hypercholesterolemia, unspecified; K21.9 Gastro-esophageal reflux disease without esophagitis; Z87.891 Personal history of nicotine dependence; Z79.82 Long term (current) use of aspirin; Z79.899 Other long term (current) drug therapy; Z98.890 Other specified postprocedural states; Z88.8 Allergy status to other drugs, medicaments and biological substances
CPT/HCPCS: 99212; G0463

== ENCOUNTER → 2021-08-03 | Outpatient (CLI) | payer OTHER, MEDICARE ==
[2020-08-26 14:15] VITALS: BP 142/80
[~2021-08-03] MED LIST changes: +IOHEXOL 180 MG/ML 10 ML VIAL. ONE; +methylPREDNISolone ACETATE 80 MG/ML VIAL. ONE
--- NOTE | 2021-08-03 10:44 | PDOC ---
Progress Note - Pain Clinic Date of Service: DOS: DATE: 08/03/21 TIME: 10:39 Diagnosis: Dx: Cervical radiculopathy with cervical degenerative disease and cervical spondylosis Hypertension Diabetes type 2 History or Present Illness: HPI: 71-year-old male returns after cervical epidural steroid injection x1 with about 75% improvement in the neck and left upper extremity. Patient reports still significant pain in the arm but much better than it was patient reports still noticeable with reaching repetitive motions weightbearing and reaching over his head with his left arm but doing much better now patient reports is a 5 on a scale 10 is worst for an average 4 to [place] is a 4 today patient reports no bowel or bladder incontinence no loss of motor function describes pain as t ingling and dull and radiating in the arm itself patient reports wakes up for sleep about once every 4-6 hours at the most but most nights he sleeps fairly well patient reports is increasing his activity with much greater ease and comfort is been avoiding activities that would exacerbate the pain. Patient reports no new deficits, but significant fatigability with the use of the upper extremities. Physical Exam: VS: Blood pressure is 126/84 pulse 73 respirations 18 temperature 97.9 F weight is 188 pounds PE: PHYSICAL EXAMINATION: GENERAL: The patient is awake, alert, oriented, appropriate, very pleasant in demeanor HEENT: Shows normocephalic, atraumatic. Extraocular movements are intact and symmetrical. Oral cavity: Mucous membranes moist and pink NECK: Shows anterior throat supple without palpable lymphadenopathy noted. Sw allow reflex symmetrical. CHEST: Shows normal on inspection. Breath sounds are clear bilaterally, no rales or rhonchi. HEART: Shows S1, S2 clear. No murmurs auscultated. ABDOMEN: Soft, nontender, nondistended. No palpable organomegaly is noted. BACK: Shows spine grossly in the midline. Normal-appearing cervical lordotic curvature. Cervical paraspinous muscles show symmetrical with inspection, on palpation some moderate tenderness diffusely bilaterally diffusely without significant radiation. Patient shows good rotation motion of the cervical spine both laterally as well as extension flexion without significant difficulty. The re is slightly increased thoracic kyphosis, some minor flattening of the lumbar lordotic curvature. . EXTREMITIES: Upper extremities show 2+ deep tendon reflexes for in the biceps and triceps tendons. 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 Peripheral pulses are 2+ posterior radial. No peripheral edema is noted bilaterally. Upper extremities are warm and dry to touch, equal in color and appearance. SKIN: Shows warm and dry, good turgor. No edema. No sores, rashes or bruising throughout. Procedure: Procedure: Options were discussed with the patient. Patient's old chart was reviewed his current medication regimen updated current review of systems updated today as well. We will proceed with a cervical epidural steroid injection today with fluoroscopic guidance. Risks were discussed including but not limited to: Bleeding, infection, possibility of epidural hematoma and subsequent neurological compromise, dural puncture, headaches, spinal cord and/or nerve damage, side effects of steroid medication, and poor results regarding pain control. Patient understands and wished to proceed. Patient will return to clinic in approximately 2 weeks for follow-up, was counseled as to return appointment, activity level, and side effect to be aware of. Medication Injected: Med Injected: Procedure cervical epidural steroid injection at the C6-7 level, using local anesthetic under sterile prep and drape using C-arm fluoroscopic guidance under local anesthesia medications injected ;120 mg Depo-Medrol +5 mL normal saline and 2 mL contrast; condition at discharge is stable patient tolerated procedure well. and had no complications Condition at Discharge: Condition at Discharge: Condition at discharge stable, patient tolerated procedure well and had no complications. FIDE CAMPBELL MD Aug 03, 2021 10:44
--- NOTE | 2021-08-03 10:45 | PDOC4 ---
Procedure Note: ICD 10 Code: ICD 10 Code: M54.12 M50.30 7.812 Procedure Note: Patient was consented for cervical epidural steroid injection with fluoroscopic guidance. Risks were discussed including but not limited to: Bleeding, infection, possibility of epidural hematoma and subsequent neurological compromise, dural puncture, headaches, spinal cord and/or nerve damage, side effects of steroid medication, and poor results regarding pain control. Patient understands and wished to proceed. Procedure cervical epidural steroid injection at the C6-7 level, using local anesthetic under sterile prep and drape using C-arm fluoroscopic guidance under local anesthesia medications injected ;120 mg Depo-Medrol +5 mL normal saline and 2 mL contrast; condition at discharge is stable patient tolerated procedure well. and had no complications FIDE CAMPBELL MD Aug 03, 2021 10:45
== END | disposition home or self-care (01) ==
LOC: PNCL 09:53
PROVIDERS: ATTEND Anesthesiology
DX: M50.10 Cervical disc disorder with radiculopathy, unspecified cervical region (principal); M47.22 Other spondylosis with radiculopathy, cervical region; I10 Essential (primary) hypertension; E11.9 Type 2 diabetes mellitus without complications; E78.00 Pure hypercholesterolemia, unspecified; K21.9 Gastro-esophageal reflux disease without esophagitis; M19.90 Unspecified osteoarthritis, unspecified site; Z87.891 Personal history of nicotine dependence; Z79.82 Long term (current) use of aspirin; Z79.84 Long term (current) use of oral hypoglycemic drugs; Z79.899 Other long term (current) drug therapy; Z98.890 Other specified postprocedural states; Z88.8 Allergy status to other drugs, medicaments and biological substances
CPT/HCPCS: 62321; J1040; Q9965

== ENCOUNTER → 2021-08-17 | Outpatient (CLI) | payer OTHER, MEDICARE ==
[2020-08-26 14:15] VITALS: BP 142/80
[~2021-08-17] MED LIST changes: -IOHEXOL 180 MG/ML 10 ML VIAL. ONE; -methylPREDNISolone ACETATE 80 MG/ML VIAL. ONE
--- NOTE | 2021-08-17 10:14 | PDOC ---
Progress Note - Pain Clinic Date of Service: DOS: DATE: 08/17/21 TIME: 10:10 Diagnosis: Dx: Cervical radiculopathy with cervical degenerative disc disease and cervical spondylosis Diabetes type 2 Hypertension History or Present Illness: HPI: 71-year-old male returns for follow-up status post cervical epidural steroid injection and reports about 80% improvement in the pain in the base the neck and the left upper extremity. Patient is very pleased with his progress has been increase his activity with greater ease and comfort doing repetitive motions at weight lifting repetitively driving doing fine motor movements without motor loss and is very much improved. Patient reports 4 to scale 10 at its worst 1 on average 1 its least is a 1 out of 10 today. Patient scribes pain is dull and aching in the forearm radiating into the hand on the left side with numbness and tingling in the fingers thumb and first finger especially also pain the base of the neck and shoulder but much improved patient reports it is dull and tingling on and off in intensity sleeping better at night now increasing distance with repetitive motions doing household activities work activities and try with greater ease and comfort as well. Patient reports is not awakening from sleep currently. Patient reports no dropping of any items no difficulty with fine motor movements as he has had in the past. Patient reports he is not taking any oral analgesics now as he was taking Tylenol prior and is stopped taking this completely since his last injection. Physical Exam: VS: Blood pressure is 139/81 pulse 73 respirations 18 temperature is 98.6 F height is 5 feet 6 inches weight is 188 pounds. PE: PHYSICAL EXAMINATION: GENERAL: The patient is awake, alert, oriented, appropriate, very pleasant in demeanor HEENT: Shows normocephalic, atraumatic. Extraocular movements are intact and symmetrical. Oral cavity: Mucous membranes moist and pink. Dentition is intact. NECK: Shows anterior throat supple without palpable lymphadenopathy noted. Swallow reflex symmetrical. CHEST: Shows normal on inspection. Breath sounds are clear bilaterally, distant but no rales or rhonchi. HEART: Shows S1, S2 clear. No murmurs auscultated. ABDOMEN: Soft, nontender, nondistended. No palpable organomegaly is noted. BACK: Shows spine grossly in the midline. Normal-appearing cervical lordotic curvature. Cervical paraspinous muscles show symmetrical inspection, on palpation some moderate tenderness diffusely in the middle inferior aspect of the cervical paraspinous muscles are more on the left than the right and into the superior medial trapezius but without trigger points without radiation. Patient shows good rotation motion cervical spine with much more ability to extend with greater ease as well as forward flexion right and left lateral rotation without significant difficulty. There is slightly increased thoracic kyphosis, some minor flattening of the lumbar lordotic curvature. EXTREMITIES: Upper extremities show deep tendon reflexes 2+ in the biceps and triceps tendons. Motor exam is 5 on a scale of 5 with right it associate, biceps and triceps flexion and 4/5 on the left. Peripheral pulses are 2+ radial. No peripheral edema is noted bilaterally. Upper extremities are warm and dry to touch, equal in color and appearance. SKIN: Shows warm and dry, good turgor. No edema. No sores, rashes or bruising throughout. Procedure: Procedure: Options were discussed with patient. Patient's old chart was reviewed as his current medication regimen updated current review of systems updated today as well. We will preauthorize patient for a additional cervical epidural steroid injection as he did very well with about 80% improvement for the first 2-1/2 weeks after his last injection with pain returning in a radicular fashion persistently in the C6-7 dermatomal distribution in the left upper extremity. Patient will continue with stretching strength exercise as well as heat and massage techniques and oral analgesics as necessary. Medication Injected: Med Injected: None Condition at Discharge: Condition at Discharge: Condition at discharge is stable. FIDE CAMPBELL MD Aug 17, 2021 10:14
== END | disposition home or self-care (01) ==
LOC: PNCL 09:55
PROVIDERS: ATTEND Anesthesiology
DX: M50.10 Cervical disc disorder with radiculopathy, unspecified cervical region (principal); M47.22 Other spondylosis with radiculopathy, cervical region; E11.9 Type 2 diabetes mellitus without complications; I10 Essential (primary) hypertension; K21.9 Gastro-esophageal reflux disease without esophagitis; M19.90 Unspecified osteoarthritis, unspecified site; Z79.82 Long term (current) use of aspirin; Z79.84 Long term (current) use of oral hypoglycemic drugs; Z79.899 Other long term (current) drug therapy; Z87.891 Personal history of nicotine dependence; Z98.890 Other specified postprocedural states; Z88.8 Allergy status to other drugs, medicaments and biological substances
CPT/HCPCS: 99212; G0463

== ENCOUNTER → 2021-08-25 | Outpatient (CLI) | payer OTHER, MEDICARE ==
[2020-08-26 14:15] VITALS: BP 142/80
[~2021-08-25] MED LIST changes: +IOHEXOL 180 MG/ML 10 ML VIAL. ONE; +methylPREDNISolone ACETATE 80 MG/ML VIAL. ONE
--- NOTE | 2021-08-25 10:39 | PDOC ---
Progress Note - Pain Clinic Date of Service: DOS: DATE: 08/25/21 TIME: 10:36 Diagnosis: Dx: Cervical radiculopathy with cervical degenerative disease and cervical spondylosis Diabetes type. Hypertension History or Present Illness: HPI: 71-year-old male returns for follow-up status post cervical epidural steroid injection x2. Patient reports doing very well about 80% improvement with pain still returning in the left upper extremity but not nearly as it was patient reports is intermittent now in intensity in the biceps region and the lateral aspect of the upper arm and also intermittent in the hands and the thumb is significantly better may be closer to 90% by his estimation patient reports the pain is still dull and tingling radiating left upper extremity but much improved patient reports on and off intensity not constant like it was previously patient reports generally sleeping better at night increase activity with greater distance walking doing household activities work activities travel with greater ease and comfort no motor loss to the upper extremities using the left arm with basically normal function reaching over his head with his left arm as well as reaching forward weightbearing and repetitive motions much more comfortable. Patient reports no bowel incontinence no motor deficits. Physical Exam: VS: Blood pressure is 133/87 pulse 70 respirations 18 temperature 97.6 F weight is 208 pounds. PE: PHYSICAL EXAMINATION: GENERAL: The patient is awake, alert, oriented, appropriate, very pleasant in demeanor HEENT: Shows normocephalic, atraumatic. Extraocular movements are intact and symmetrical. Oral cavity: Mucous membranes moist and pink. Dentition is intact. NECK: Shows anterior throat supple without palpable lymphadenopathy noted. Swallow reflex symmetrical. CHEST: Shows normal on inspection. Breath sounds are clear bilaterally, distant but no rales or rhonchi auscultated. HEART: Shows S1, S2 clear. No murmurs auscultated. ABDOMEN: Soft, nontender, nondistended. No palpable organomegaly is noted. BACK: Shows spine grossly in the midline. Normal-appearing cervical lordotic curvature. Cervical paraspinous muscles show symmetrical inspection, on palpation some moderate tenderness diffusely bilaterally diffusely got significant radiation. Patient does show good rotation of motion cervical spine both laterally as well as extension flexion without significant rotation. There is slightly increased thoracic kyphosis, some minor flattening of the lumbar lordotic curvature. EXTREMITIES: Upper extremities show deep tendon reflexes 2+ in the biceps and triceps tendons. 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 Peripheral pulses are 2+ radial. No peripheral edema is noted bilaterally. Upper extremities are warm and dry to touch, equal in color and appearance. SKIN: Shows warm and dry, good turgor. No edema. No sores, rashes or bruising throughout. Procedure: Procedure: Options were discussed with patient. Patient's old chart was reviewed as his current medication regimen updated current review of systems updated today as well. We will proceed with a cervical epidural steroid injection today with fluoroscopic guidance. Risks were discussed including but not limited to: Bleeding, infection, possibility of epidural hematoma and subsequent neurological compromise, dural puncture, headaches, spinal cord and/or nerve damage, side effects of steroid medication, and poor results regarding pain control. Patient understands and wished to proceed. Patient return to the clinic in approximate 2 weeks for follow-up, was counseled as to return appointment, activity level, and side effect to be aware of. Medication Injected: Med Injected: Procedure cervical epidural steroid injection at the C6-7 level, using local anesthetic under sterile prep and drape using C-arm fluoroscopic guidance under local anesthesia medications injected ;120 mg Depo-Medrol +5 mL normal saline and 2 mL contrast; condition at discharge is stable patient tolerated procedure well. and had no complications Condition at Discharge: Condition at Discharge: Condition at discharge stable, patient tolerated procedure well and had no complications. FIDE CAMPBELL MD Aug 25, 2021 10:39
--- NOTE | 2021-08-25 10:40 | PDOC4 ---
Procedure Note: ICD 10 Code: ICD 10 Code: M54.12 M50.30 M4 7.812 Procedure Note: Patient was consented for cervical epidural steroid injection with fluoroscopic guidance. Risks were discussed including but not limited to: Bleeding, infection, possibility of epidural hematoma and subsequent neurological compromise, dural puncture, headaches, spinal cord and/or nerve damage, side effects of steroid medication, and poor results regarding pain control. Patient understands and wished to proceed. Procedure cervical epidural steroid injection at the C6-7 level, using local anesthetic under sterile prep and drape using C-arm fluoroscopic guidance under local anesthesia medications injected ;120 mg Depo-Medrol +5 mL normal saline and 2 mL contrast; condition at discharge is stable patient tolerated procedure well. and had no complications FIDE CAMPBELL MD Aug 25, 2021 10:40
== END | disposition home or self-care (01) ==
LOC: PNCL 09:54
PROVIDERS: ATTEND Anesthesiology
DX: M50.10 Cervical disc disorder with radiculopathy, unspecified cervical region (principal); M47.22 Other spondylosis with radiculopathy, cervical region; E11.9 Type 2 diabetes mellitus without complications; I10 Essential (primary) hypertension; E78.00 Pure hypercholesterolemia, unspecified; K21.9 Gastro-esophageal reflux disease without esophagitis; M19.90 Unspecified osteoarthritis, unspecified site; Z87.891 Personal history of nicotine dependence; Z79.82 Long term (current) use of aspirin; Z79.899 Other long term (current) drug therapy; Z98.890 Other specified postprocedural states; Z88.8 Allergy status to other drugs, medicaments and biological substances
CPT/HCPCS: 62321; J1040; Q9965

== ENCOUNTER → 2021-11-16 | Outpatient (CLI) | payer OTHER, MEDICARE ==
[2020-08-26 14:15] VITALS: BP 142/80
[~2021-11-16] MED LIST changes: -IOHEXOL 180 MG/ML 10 ML VIAL. ONE; -methylPREDNISolone ACETATE 80 MG/ML VIAL. ONE
--- NOTE | 2021-11-16 16:37 | CARD ---
MR#: [id number] Date of Study: 11/16/2021 Ordering Physician: JADE FINCH, Referring Physician: JADE FINCH Tech: Carlie Blankenship YENIFER APPROVED REPORT EXAM: Two-dimensional and M-mode echocardiogram with Doppler and color Doppler. Other Information Quality : Technically LimitedHR: 65bpm Rhythm : NSR INDICATION Hypertension/HCVD RISK FACTORS Hypertension Obesity Diabetes 2D DIMENSIONS Left Atrium(2D)4.0 (1.6-4.0cm)IVSd0.9 (0.7-1.1cm) Aortic Root(2D)3.0 (2.0-3.7cm)LVDd4.6 (3.9-5.9cm) LVOT Diameter2.4 (1.8-2.4cm)PWd1.0 (0.7-1.1cm) IVSs1.2 (0.8-1.2cm)LVDs4.2 (2.5-4.0cm) FS (%) 8.2 %PWs0.7 (0.8-1.2cm) SV17.8 mlLVEF(%)18.1 (>50%) Aortic Valve AoV Peak Jeronimo.123.4cm/sAoV VTI25.5cm AO Peak GR.6.1mmHgLVOT Peak Jeronimo.81.2cm/s LVOT VTI 20.77cmAO Mean GR.3mmHg KALEB (VMAX)2.14do8PFS (VTI)3.71cm2 Mitral Valve MV E Qokcrxye33.1cm/sMV DECEL [id number] MV A Twpgyjlz95.7cm/sMV [id number] E/A Ratio1.3MVA (PHT)4.21cm2 TDI E/Lateral E'7.9E/Medial E'7.9 Pulmonary Valve PV Peak Uhfvjrrj668.3cm/sPV Peak Grad.4mmHg Tricuspid Valve TR P. Fviggiwz389rm/sTR Peak Gr.15mmHg LEFT VENTRICLE The left ventricle is normal size. There is normal left ventricular wall thickness. The left ventricu lar systolic function is normal. The ejection fraction is 55 to 60% There is normal LV segmental wall motion. The left ventricular diastolic function and filling is normal for age. RIGHT VENTRICLE The right ventricle is normal size. There is normal right ventricular wall thickness. The right ventr icular systolic function is normal. ATRIA The left atrium size is normal. The right atrium size is normal. The interatrial septum is intact wit h no evidence for an atrial septal defect or patent foramen ovale as noted on 2-D or Doppler imaging. AORTIC VALVE The aortic valve is normal in structure and function. Doppler and Color Flow revealed no significant aortic regurgitation. There is no significant aortic valvular stenosis. MITRAL VALVE The mitral valve is normal in structure and function. There is no evidence of mitral valve prolapse. There is no mitral valve stenosis. Doppler and Color-flow revealed trace to mild mitral regurgitation . TRICUSPID VALVE The tricuspid valve is normal in structure and function. Doppler and Color Flow revealed no tricuspid valve regurgitation noted. There is no tricuspid valve stenosis. PULMONIC VALVE The pulmonary valve is normal in structure and function. Doppler and Color Flow revealed no pulmonic valvular regurgitation. GREAT VESSELS The aortic root is normal in size. The ascending aorta is normal in size. The IVC is normal in size a nd collapses >50% with inspiration. PERICARDIAL EFFUSION There is no evidence of significant pericardial effusion. Critical Notification Critical Value: No <Conclusion> The left ventricular systolic function is normal. The ejection fraction is 55 to 60% There is normal LV segmental wall motion. Trace to mild mitral regurgitation. There is no evidence of significant pericardial effusion. Signed by : Jade Finch, Electronically Approved : 11/16/2021 16:36:48
== END ==
LOC: ECHO 10:27
PROVIDERS: ATTEND Internal Medicine Cardiovascular Disease
DX: I34.0 Nonrheumatic mitral (valve) insufficiency (principal); I10 Essential (primary) hypertension
CPT/HCPCS: 93306; C8929